=== PATIENT | male | born 1985 | race African-American/Black ===

== ENCOUNTER 2017-02-28 21:39 | Emergency (ER) | payer MEDICAID ==
[~2017-02-28] VITALS: Ht 182.9 cm; Wt 72.6 kg
[2017-02-28 22:45] LABS: Salicylate 2.2 mg/dL (2.8-20.0)
[2017-02-28 22:47] LABS: Acetaminophen < 2.0 ug/mL (10-30)
[2017-02-28 23:47] LABS: Basophils # (auto) 0 uL; Eosinophils # (auto) 0.3 uL; Hemoglobin 13.2 g/dL (13.5-17.5); Nucleated Red Blood Cells % 0.1 %
[2017-02-28 23:49] LABS: Basophils % (auto) 0.5 % (0.0-2.0); Eosinophils % (auto) 4.5 % (0.0-7.0); Hematocrit 39.9 % (41.0-53.0); Lymphocytes # (auto) 1.8 uL; Lymphocytes % (auto) 27.3 % (10.0-50.0); Mean Corpuscular Hemoglobin 26.6 pg (28.0-32.0); Mean Corpuscular Hgb Conc. 33.1 g/dL (32.0-36.0); Mean Corpuscular Volume 80.5 fL (80.0-100.0); Mean Platelet Volume 10.1 fL (6.9-10.8); Monocytes # (auto) 0.6 uL; Monocytes % (auto) 8.3 % (0.0-12.0); Neutrophils % (auto) 59.4 % (37.0-80.0); Platelet Count (auto) 141 10^3/uL (140-450); Red Cell Distribution Width 15.2 % (11.8-14.3); White Blood Cell 6.8 10^3/uL (4.4-10.8)
[2017-02-28 23:55] LABS: Albumin 3.8 g/dL (3.4-5.0); BUN/Creatinine Ratio 11.8; Calcium 8.5 mg/dL (8.5-10.1); Potassium 3.5 mmol/L (3.5-5.1)
[2017-02-28 23:58] LABS: Bilirubin, Total 0.3 mg/dL (0.2-1.0); Total Protein 7.7 g/dL (6.4-8.2)
[2017-03-02] MEDS ORDERED: SERTRALINE HCL 50 MG TAB PO ONE (10:00)
[2017-03-02] MEDS ORDERED: OLANZapine 5 MG TAB PO ONE (10:00)
[2017-03-03 07:45] VITALS: BP 120/74
[2017-03-03] MEDS ORDERED: SERTRALINE HCL 50 MG TAB PO SCH (10:00)
[2017-03-03] MEDS ORDERED: OLANZapine 5 MG TAB PO SCH (22:00)
== END 2017-03-04 11:01 | disposition home or self-care (01) ==
LOC: ER 21:44
DX: R45.851 Suicidal ideations (principal); F31.9 Bipolar disorder, unspecified
CPT/HCPCS: 36415; 80053; 80307; 80320; 80329; 85025

== ENCOUNTER 2017-06-24 16:49 | Emergency (ER) | payer MEDICAID ==
[~2017-06-24] VITALS: Ht 185.4 cm; Wt 72.6 kg
[2017-06-24 17:18] VITALS: BP 132/70
== END 2017-06-24 18:35 | disposition home or self-care (01) ==
LOC: ER 16:50 → EEVIPCON 16:50 → ER 18:35
DX: S01.81XA Laceration without foreign body of other part of head, initial encounter (principal); Y08.89XA Assault by other specified means, initial encounter; Y93.89 Activity, other specified; Y92.89 Other specified places as the place of occurrence of the external cause; Y99.8 Other external cause status
CPT/HCPCS: 12011; 70450